=== PATIENT | male | born 1975 | race Two or more races ===

== ENCOUNTER 2017-02-28 21:59 | Emergency (ER) | payer SELFPAY ==
[~2017-02-28] VITALS: Ht 172.7 cm; Wt 86.2 kg
== END 2017-02-28 23:48 | disposition home or self-care (01) ==
LOC: CFTX 21:59 → CED 21:59 → CFTX 22:57
DX: T15.01XA Foreign body in cornea, right eye, initial encounter (principal)
CPT/HCPCS: 65220; 99283